=== PATIENT | female | born 1985 | race Caucasian/White ===

== ENCOUNTER 2024-02-01 14:30 | Emergency (ER) | payer MEDICAID, SELFPAY ==
[2024-02-01 14:37] VITALS: BP 137/93
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
[2024-02-01] MEDS: ADACEL 0.5 ML IM (15:55)
== END 2024-02-01 17:21 | disposition home or self-care (01) ==
LOC: EMR 14:30
PROVIDERS: EMERGENCY PHYSICIAN Emergency Medicine
DX: S61.412A Laceration without foreign body of left hand, initial encounter (principal); W19.XXXA Unspecified fall, initial encounter; F41.9 Anxiety disorder, unspecified; W26.0XXA Contact with knife, initial encounter; F31.9 Bipolar disorder, unspecified; Z23 Encounter for immunization
CPT/HCPCS: 99282; 90471; 90715